=== PATIENT | female | born 1945 | race Caucasian/White ===

== ENCOUNTER 2016-07-07 06:29 | Day surgery (SDC) | payer MEDICARE, OTHER ==
[~2016-07-07 06:29] MED LIST: BISOPROLOL-HCT1 EAC1 PO; FUROSEMIDE40 M2 PO; HYDROCODON-ACE1 EA19 PO; IBUPROFEN200 M3 PO; KLOR-CON 1010 ME1 PO; PRILOSEC OTC20 M1 PO; VITAMIN D50000 UNI2 PO
[2016-07-07 07:27] LABS: ALB/GLOB RATIO 0.6 (0.8-2.0); ALBUMIN 2.8 g/dl (3.5-5.0); ALKALINE PHOSPHATASE 102 U/L (33-138); ALT/SGPT 32 U/L (12-78); BILIRUBIN,TOTAL 1.9 mg/dl (0-1.5); BLOOD UREA NITROGEN 14 mg/dl (6-24); CALCIUM 7.9 mg/dl (8.5-10.5); CARBON DIOXIDE-VENOUS 26 mmol/L (22-32); CHLORIDE 103 mmol/l (96-110); CREATININE 0.86 mg/dl (0.50-1.10); GLUCOSE 109 mg/dL (70-110); SODIUM 139 mmol/L (135-145); eGFR VALUE FOR BLACK 79 mL/Min
[2016-07-07 07:28] LABS: ANION GAP 14 mmol/L (0-20); AST/SGOT 71 U/L (10-40); POTASSIUM 3.6 mmol/L (3.7-5.1)
[2016-07-07 07:35] LABS: INR 1.2 INR (0.9-1.1); PROTHROMBIN TIME 13.5 SECONDS (9.0-13.6)
[2016-07-07 13:54] LABS: BODY FLUID APPEARANCE CLOUDY (CLEAR); BODY FLUID COLOR YELLOW (COLORLESS); BODY FLUID RBC COUNT 1000 cmm (0); BODY FLUID VOLUME 1100 ml; BODY FLUID WBC COUNT 383 cmm
[2016-07-07 14:42] LABS: BODY FLUID LYMPHOCYTES 20 %; BODY FLUID MACROPHAGES 10 %; BODY FLUID NEUTROPHILS 70 %
[2016-07-08 11:08] LABS: BODY FLUID TYPE ASCITES; FLUID ALBUMIN <0.6 g/dl
== END 2016-07-07 10:48 ==
LOC: US 06:29 → SHSC 06:33
PROVIDERS: Radiology Diagnostic Radiology; Specialist
PROC: 0W9G3ZX Drainage of Peritoneal Cavity, Percutaneous Approach, Diagnostic (ICD-10-PCS; principal; 2016-07-07)
DX: R18.8 Other ascites (principal); K75.81 Nonalcoholic steatohepatitis (NASH); Z79.899 Other long term (current) drug therapy; Z88.0 Allergy status to penicillin
CPT/HCPCS: J7030; P9047